=== PATIENT | male | born 1960 | race Caucasian/White ===

== ENCOUNTER 2016-12-12 15:09 | Emergency (ER) | payer OTHER ==
--- NOTE | 2016-12-12 15:39 | ED CLINICAL REPORT ---
Clinical Report - Physicians/Mid Levels [facility] [address] [place] [address] 12/12/2016 15:08 Patient: AMBROSIO PINEDA Arrived- By ambulance. Historian- patient and EMS personnel. HISTORY OF PRESENT ILLNESS (Pt walked into room 16, walked out swearing to the bathroom, jeans on only. Used bathroom for 15 mins, announced he called 911 to take a shit and left the ER via ambulance bay.). PROGRESS AND PROCEDURES Course of Care: He did not appear in any distress, no physical exam. CLINICAL IMPRESSION Bowel movement: normal adult. (Electronically signed by Josefa Jane P.A.-C 12/12/2016 15:33)
--- NOTE | 2016-12-12 15:39 | ED CLINICAL REPORT ---
Clinical Report - Physicians/Mid Levels [facility] [address] [place] [address] 12/12/2016 15:08 Patient: AMBROSIO PINEDA Arrived- By ambulance. Historian- patient and EMS personnel. HISTORY OF PRESENT ILLNESS (Pt walked into room 16, walked out swearing to the bathroom, jeans on only. Used bathroom for 15 mins, announced he called 911 to take a shit and left the ER via ambulance bay.). PROGRESS AND PROCEDURES Course of Care: He did not appear in any distress, no physical exam. CLINICAL IMPRESSION Bowel movement: normal adult. (Electronically signed by Josefa Jane P.A.-C 12/12/2016 15:33)
--- NOTE | 2016-12-12 15:45 | ED MED RECONCILIATION SUMMARY ---
Patient: AMBROSIO PINEDA Medication Reconciliation Report [facility] VisitID: [id number] [address] [place] [place] [address] 56y, M Registration Date/Time: 12/12/2016 Weight: (not available) Height/Length: (not available) BMI: (not available) ALLERGIES: The patient's Home Medications are listed below: Not obtained. The source(s) of the original Home Medication information: Not obtained. The following Medications were given to the patient in the Emergency Department: None. The following Medications were prescribed to the patient: None.
--- NOTE | 2016-12-12 15:45 | ED MAR SUMMARY ---
..... Medication Administration Record [facility] [address] [place], [place] [id number] Patient: AMBROSIO PINEDA Visit ID: [id number] 56y, M Weight: (not available) Height/Length: (not available) BMI: (not available) ALLERGIES:
--- NOTE | 2016-12-12 15:45 | ED NURSING NOTES ---
Clinical Report - Nurses [facility] [place] [address] [place] [address] 12/12/2016 15:08 Patient: AMBROSIO PINEDA TRIAGE Triage time 15:10. Chief Complaint: ABDOMINAL PAIN. --15:42 Cuba Salgado R.N. History Arrived by EMS. ( patient called in EMS for abdominal pain, uncooperative with care enroute to ER.). SOCIAL HX: ( Patient went straight to the bathroom on arrival to ER and held himself there for 20 mins and said he just need to have a BM. Left ER after using the BR and does not want to be seen.). --15:42 Cuba Salgado R.N. DISPOSITION / DISCHARGE 15:35. The patient left the Emergency Department before triage and without being seen by a physician and completion of treatment; patient was unaccompanied. The patient appears to be alert, uncooperative, belligerent and using abusive language. The patient notified the ED staff prior to leaving the department and stated is leaving the ED (does not want to be seen in ER). Notified the ED physician and charge nurse of patient departure. Prior to leaving the ED, he was advised to stay for completion of treatment and return if needed. He left the Emergency Department ambulatory and via taxi. --15:44 Cuba Salgado R.N. Departure time: 15:35 PM. --15:44 Cuba Salgado R.N. Locked/Released at 12/12/2016 15:45 by Cuba Salgado R.N.
--- NOTE | 2016-12-12 15:45 | ED MED RECONCILIATION SUMMARY ---
Patient: AMBROSIO PINEDA Medication Reconciliation Report [facility] VisitID: [id number] [address] [place] [address] 56y, M Registration Date/Time: 12/12/2016 Weight: (not available) Height/Length: (not available) BMI: (not available) ALLERGIES: The patient's Home Medications are listed below: Not obtained. The source(s) of the original Home Medication information: Not obtained. The following Medications were given to the patient in the Emergency Department: None. The following Medications were prescribed to the patient: None.
--- NOTE | 2016-12-12 15:45 | ED MAR SUMMARY ---
..... Medication Administration Record [facility] [address] [place], [place] [id number] Patient: AMBROSIO PINEDA Visit ID: [id number] 56y, M Weight: (not available) Height/Length: (not available) BMI: (not available) ALLERGIES:
--- NOTE | 2016-12-12 15:45 | ED DISCHARGE INSTRUCTIONS ---
Patient: AMBROSIO PINEDA General Instructions [facility] VisitID: [id number] [address] [place] [address] 56y, M Registration Date/Time: 12/12/2016 Bowel movement: normal adult. (Electronically signed by Josefa Jane P.A.-C 12/12/2016 15:33)
--- NOTE | 2016-12-12 15:45 | ED NURSING NOTES ---
Clinical Report - Nurses [facility] [place] [address] [place] [address] 12/12/2016 15:08 Patient: AMBROSIO PINEDA TRIAGE Triage time 15:10. Chief Complaint: ABDOMINAL PAIN. --15:42 Cuba Salgado R.N. History Arrived by EMS. ( patient called in EMS for abdominal pain, uncooperative with care enroute to ER.). SOCIAL HX: ( Patient went straight to the bathroom on arrival to ER and held himself there for 20 mins and said he just need to have a BM. Left ER after using the BR and does not want to be seen.). --15:42 Cuba Salgado R.N. DISPOSITION / DISCHARGE 15:35. The patient left the Emergency Department before triage and without being seen by a physician and completion of treatment; patient was unaccompanied. The patient appears to be alert, uncooperative, belligerent and using abusive language. The patient notified the ED staff prior to leaving the department and stated is leaving the ED (does not want to be seen in ER). Notified the ED physician and charge nurse of patient departure. Prior to leaving the ED, he was advised to stay for completion of treatment and return if needed. He left the Emergency Department ambulatory and via taxi. --15:44 Cuba Salgado R.N. Departure time: 15:35 PM. --15:44 Cuba Salgado R.N. Locked/Released at 12/12/2016 15:45 by Cuba Salgado R.N.
--- NOTE | 2016-12-12 15:45 | ED DISCHARGE INSTRUCTIONS ---
Patient: AMBROSIO PINEDA General Instructions [facility] VisitID: [id number] [address] [place] [address] 56y, M Registration Date/Time: 12/12/2016 Bowel movement: normal adult. (Electronically signed by Josefa Jane P.A.-C 12/12/2016 15:33)
== END 2016-12-12 15:35 | disposition left against medical advice (07) ==
LOC: ED SRH 15:09
DX: Z53.21 Procedure and treatment not carried out due to patient leaving prior to being seen by health care provider (principal)